=== PATIENT | female | born 1965 | race Caucasian/White ===

== ENCOUNTER 2017-05-30 16:45 | Inpatient (IN) | payer OTHER ==
[2017-05-30] MEDS ORDERED: methylPREDNISolone Sod Succ/PF 125 MG/2 ML VIAL ONE (17:06)
[2017-05-30 17:27] LABS: #Basophils 0.1 thou/uL (0.0-0.2); #Lymphocytes 2.3 thou/uL (1.20-3.40); #Monocytes 0.6 thou/uL (0.11-0.59); #Neutrophils 8.3 thou/uL (1.40-6.50); %Basophils 0.8 % (0.0-1.0); %Eosinophils 0.4 % (0.0-10.0); %Lymphocytes 20.5 % (21.0-51.0); %Monocytes 5.2 % (0.0-10.0); Hematocrit 41.3 % (36.0-47.0); Mean Platelet Volume 7.6 fL (7.4-10.4); Red Blood Cell (RBC) Count 4.27 mill/uL (4.20-5.40); White Blood Cell (WBC) Count 11.4 thou/uL (4.8-10.8)
--- NOTE | 2017-05-30 17:39 | RAD ---
TWO VIEWS CHEST: 05/30/17 HISTORY: Productive cough. PA and lateral views of the chest is obtained on 05/30/17. Comparison made to previous exam from 08/04/13. Two views chest demonstrates an area of newly developed patchy density in the right upper lobe. This area was not present on the previous exam from 08/04/13 and from 11/20/15. This may represent a righ t upper lobe scar versus pneumonia versus mass. Correlate with followup radiograph as well as clinic al correlation. There is also interval development of a subtle area of patchy density along the lateral aspect of th e right lower lobe. The left lung is well aerated. IMPRESSION: Right upper lobe and subtle areas of increased density in the right lower lobe laterally. Followup f ilms to resolution recommended. This may represent areas of possible pneumonia. POS: KEYLA
[2017-05-30 17:44] LABS: ALT (SGPT) 19 U/L (8-55); AST (SGOT) 19 U/L (5-34); Alkaline Phosphatase 88 U/L (40-150); Anion Gap 17 mmol/L (10-20); BUN (Urea Nitrogen) 6 mg/dL (9.8-20.1); Bilirubin, Total 0.3 mg/dL (0.2-1.2); Calc. Creatinine Clearance 0 mL/min (70-130); Calcium 9.8 mg/dL (7.8-10.44); Carbon Dioxide 24 mmol/L (22-29); Chloride 104 mmol/L (98-107); Estimated GFR-MDRD 73; Globulin 4.2 g/dL (2.4-3.5); Protein, Total 8.4 g/dL (6.0-8.3)
[2017-05-30 17:45] LABS: Troponin I Less than 0.010 ng/mL (< 0.028)
[2017-05-30] MEDS ORDERED: cefTRIAXone\\ROCEPHIN 1 GM VIAL ONE (17:50)
[2017-05-30] MEDS ORDERED: Sodium Chloride 0.9% 100 ML ONE (17:50)
[2017-05-30] MEDS ORDERED: Azithromycin 500 MG VIAL ONE (18:25)
[2017-05-30] MEDS ORDERED: Acetaminophen 325 MG TAB ONE (20:22)
[2017-05-30 21:15] LABS: Bilirubin Negative (Negative); Blood, Urine Small (Negative); Glucose, Urine (Dipstick) Negative (Negative); Ketone, Urine Negative (Negative); Nitrite Negative (Negative); Protein, Urine (Dipstick) Negative (Neg-Trace); Urobilinogen 0.2 mg/dL (0.2-1.0)
[2017-05-30 21:30] LABS: RBC/HPF 0-3 HPF (0-3); Squamous Epithelial 0-3 HPF (0-3); WBC/HPF 0-3 HPF (0-3)
[2017-05-30] MEDS ORDERED: Ondansetron ODT 4 MG TAB SL PRN (23:22)
[2017-05-30] MEDS ORDERED: Ondansetron HCl/PF 4 MG/2 ML Vial IVP PRN (23:22)
[2017-05-30] MEDS ORDERED: Dextrose 5 %-0.45 % NaCl 1,000 ML IV SCH (23:30)
[2017-05-30 23:50] VITALS: BMI 22.1
[2017-05-31] MEDS ORDERED: Docusate 100 MG CAP PO PRN (00:33)
[2017-05-31] MEDS ORDERED: Ondansetron HCl/PF 4 MG/2 ML Vial IVP PRN (00:33)
[2017-05-31] MEDS ORDERED: Acetaminophen 325 MG TAB PO PRN (00:33)
[2017-05-31] MEDS ORDERED: Mag-Al 1200 mg/1200 mg/30 ML UDCUP PO PRN (00:33)
[2017-05-31] MEDS: Benzonatate 100 MG CAP PO PRN ×2 (01:40→05:33)
[2017-05-31] MEDS: Sodium Chloride 0.9% 1,000 ML IV SCH ×2 (01:41→11:48)
[2017-05-31] MEDS ORDERED: Nicotine 14 MG PATCH TD SCH (02:00)
[2017-05-31] MEDS ORDERED: Potassium Chloride 20 MEQ TAB PO SCH (03:30)
[2017-05-31 04:11] LABS: #Lymphocytes 0.8 thou/uL (1.20-3.40); #Monocytes 0.1 thou/uL (0.11-0.59); #Neutrophils 8.5 thou/uL (1.40-6.50); %Basophils 0.1 % (0.0-1.0); %Eosinophils 0.4 % (0.0-10.0); %Lymphocytes 8.1 % (21.0-51.0); %Monocytes 0.7 % (0.0-10.0); Hematocrit 40.1 % (36.0-47.0); Mean Platelet Volume 7.5 fL (7.4-10.4); White Blood Cell (WBC) Count 9.4 thou/uL (4.8-10.8)
[2017-05-31 04:17] LABS: Anion Gap 16 mmol/L (10-20); BUN (Urea Nitrogen) 5 mg/dL (9.8-20.1); Calc. Creatinine Clearance 108 mL/min (70-130); Carbon Dioxide 20 mmol/L (22-29); Chloride 108 mmol/L (98-107); Estimated GFR-MDRD Greater than 90
[2017-05-31 04:23] LABS: LegU Control Bar Appear? YES (CONTROL BAR); LegionellaU Control Bkground? CLEAR/WHITE (CLR/WHITE); Strp pneuU Control Background? CLEAR/WHITE (CLR/WHITE); Strp pneumo Control Bar Appear YES (CONTROL BAR)
[2017-05-31] MEDS ORDERED: cefTRIAXone\\ROCEPHIN 1 GM in Sodium Chloride 0.9% 100 ML IVPB SCH (06:00)
[2017-05-31] MEDS ORDERED: Ibuprofen 600 MG TAB PO PRN (06:35)
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
--- NOTE | 2017-05-31 07:10 | HP-2 ---
DATE OF ADMISSION: 05/30/2017 DATE OF SERVICE: 05/30/2017 LOCATION: [place], [place]. CO-SIGNER: Dr. Kathi Mack. CODE STATUS: FULL CODE. PRIMARY CARE PHYSICIAN: [place] [facility]. ATTENDING PHYSICIAN: Dr. Dr. Kathi Mack. RESIDENT PHYSICIAN: Dr. Marcelino Bruce. HISTORIAN: Patient provided the history. CHIEF COMPLAINT: Productive cough, chills, and shortness of breath. HISTORY OF PRESENT ILLNESS: The patient is a 52-year-old female with past medical history of COPD, persistent tobacco abuse who presented with a 2 week history of increased shortness of breath, produ ctive cough, and chills which have been worsening since onset. The patient also reports of blood ti nged sputum and has a history of a lung mass, which was previously biopsied and found to be noncance angely. However, she was instructed to follow up within 6 months of the biopsy, but is yet to return for followup visit in over a year. The patient is complaining of bilateral lower rib/chest pain and it is worse with deep inspiration. She denies fever, nausea, vomiting, diarrhea, constipation, esperanza phoresis. ER: In the ER, the patient was given 1 liter normal saline, Tylenol for pain, IV Rocephin and IV az ithromycin as well as DuoNeb x2 and methylprednisolone. PAST MEDICAL HISTORY: 1. COPD. 2. Chronic hepatitis C. 3. Chronic pain. 4. Bipolar depression. PAST SURGICAL HISTORY: 1. Bilateral tubal ligation. 2. Cholecystectomy. ALLERGIES: IBUPROFEN. MEDICATIONS: 1. Cetirizine 10 mg daily. 2. Seroquel 100 mg nightly. 3. Omeprazole 20 mg daily. 4. Aspirin 81 mg daily. 5. Lyrica 75 mg b.i.d. 6. Montelukast 10 mg daily. 7. Spiriva 2.5 mcg per inhalation b.i.d. FAMILY HISTORY: Positive for diabetes, kidney disease, liver disease. SOCIAL HISTORY: The patient is a current 1 pack per day smoker with a well over [id number] histor y. She denies smoking and denies drug use. REVIEW OF SYSTEMS: General: Patient complains of chills. Denies fever or night sweats. ENT: The patient complains of nasal congestion. Denies rhinorrhea, and sore throat. Respiratory: The patient complains of cough, congestion, shortness of breath. Cardiovascular: The patient patria es chest pain, palpitations or edema. Gastrointestinal: Denies nausea, vomiting, diarrhea, constip ation, abdominal pain. Genitourinary: The patient complains of incontinence. Reports this is a ronic issue. She denies dysuria, polyuria. Musculoskeletal: The patient denies pain or tenderness . Neurologic: The patient denies weakness, numbness, syncopal episodes. PHYSICAL EXAMINATION: VITAL SIGNS: The patient's blood pressure 151/99, pulse 91, respirations 22 breaths per minute, T-m ax 98.9, pulse oximetry 95% on room air. Patient's current weight 64 kilograms. GENERAL: The patient is alert and oriented, in no acute distress, thin and appropriately interactiv e. EYES: Extraocular muscles intact. Conjunctivae within normal limits. NECK: Supple, without lymphadenopathy. No thyromegaly. CARDIOVASCULAR: Heart regular rate and rhythm. No murmurs, rubs or gallops. Radial pulses 2+. Pe mili pulses 2+. RESPIRATORY: Lungs clear to auscultation bilaterally, normal effort, no retractions, no paradoxical breathing. SKIN: Warm, dry. No cyanosis. ABDOMEN: Soft, nontender. Normoactive bowel sounds in all 4 quadrants. No masses, distention or o rganomegaly. EXTREMITIES: No clubbing, no cyanosis, no edema. MUSCULOSKELETAL: Structure within normal limits. Tone within normal limits. NEUROLOGIC: No focal deficits. GCS 15. PSYCHIATRIC: The patient appropriate. LABORATORY DATA: White blood cell 11.4, hemoglobin 13.9, hematocrit 41.3, sodium 142, potassium 3.3 , chloride 104, bicarbonate 24, BUN 6, creatinine 0.82, glucose 87, calcium 9.8, total protein 8.4, albumin 4.2, AST 19, ALT 19, alkaline phosphatase 88, D-dimer 0.59, CRP 1.57, CK-MB is 0.9, troponin less than 0.010. UA was positive for small amount of blood in the urine, but otherwise negative. IMAGING: Chest x-ray showed a right upper lobe and subtle areas of increased density in the right l ower lobe laterally concerning for pneumonia. ASSESSMENT AND PLAN: 1. Chronic obstructive pulmonary disease exacerbation secondary to community-acquired pneumonia. P monika will be admitted to the medical floor and continued on IV Rocephin and azithromycin at 2 gram s daily and 500 mg daily, respectively. The patient will be started on DuoNeb q.4 hours scheduled a nd q.2 hours p.r.n. The patient encouraged to use incentive spirometer and flutter valve. The patie nt will be started on prednisone 40 mg daily. We will get a CT angio with elevated D-dimer, history of previous mass and hemoptysis, those results are pending. We will check urinary legionella and s trep pneumo antigen as well as Flu A and B antibody screen. The patient will be placed on IV fluids normal saline at 100 mL per hour. 2. Leukocytosis is likely secondary to community-acquired pneumonia versus viral pneumonia. The pa tient will be continued on IV Rocephin and azithromycin. Flu A and B antibody studies pending. Uri ne legionella and strep pneumo antigens pending. 3. Hypokalemia. The patient will be given 20 mEq of p.o. potassium. We will recheck a BMP in the morning. 4. Prophylaxis. The patient will be given sequential compression devices for deep venous thrombosi s prophylaxis and omeprazole for gastrointestinal prophylaxis. DISPOSITION AND LENGTH OF STAY: Patient is stable. Expected length of stay greater than or equal t o 2 days. Symptomatic medication will be provided. History and physical exam as well as management was discussed with Dr. Kathi Mack who agrees with the above assessment and plan was otherwise noted in the history and physical.
--- NOTE | 2017-05-31 07:39 | HP ---
DATE OF ADMISSION: 05/30/2017 ATTENDING: Dr. Kathi Mack. RESIDENT: DO Dr. Teo Natarajan's history and physical reviewed and case discussed. Pertinent portions of the history an d physical reviewed by myself. I agree with the assessment and plan with the following addendum: Ms. Miranda is a 52-year-old female with past medical history of COPD, who presents with a COPD exacerbation. She is currently not hypoxic. She was then given a dose of IV steroids and an tibiotics in the ER. Her chest x-ray shows a spiculated lesion concerning for possible mass. In ad dition to that her D-dimer is elevated. We will consider CTA in the morning to evaluate further. B ased on those results, may consider consulting Pulmonology.
[2017-05-31] MEDS ORDERED: predniSONE 20 MG TAB PO SCH (08:00)
[2017-05-31] MEDS ORDERED: Montelukast Sodium 10 mg Tablet PO SCH (09:00)
[2017-05-31] MEDS ORDERED: FLU VACC QS2017-18 36 mo. & older 0.5 ML SYRINGE IM ONE (09:00)
[2017-05-31] MEDS ORDERED: Iopamidol 370 76% 100 ML VIAL ONE (14:35)
--- NOTE | 2017-05-31 15:23 | CT ---
CT PULMONARY ANGIOGRAM WITH IV CONTRAST ND 3D POSTPROCESSING: Date: 05/31/17 HISTORY: Hemoptysis. FINDINGS: There is good contrast opacification of the pulmonary arterial vasculature without filling defects t o suggest pulmonary embolism. The thoracic aorta is well opacified without aneurysm or dissection. N o pleural or pericardial effusions are seen. The 9.0 mm lymph node in the anterior mediastinum is st able since 11/30/12. There is a new 3.0 cm mass in the right upper lobe with associated spiculation. Increased density within the mass is likely vascularity, though the possibility of internal calcifi cation cannot be completely excluded in the absence of noncontrasted images. There are emphysematous changes. No osteolytic or osteoblastic lesions are seen. IMPRESSION: 1. No CT evidence of pulmonary embolism. 2. 3.0 cm right upper lobe lung mass. Further evaluation with PET scan is recommended. CODE T. POS: KEYLA
[2017-05-31 16:24] VITALS: BP 144/80; TEMP 98.1
[2017-05-31] MEDS ORDERED: Azithromycin 500 MG in Sodium Chloride 0.9% 250 ML 250 ML IVPB SCH (20:00)
--- NOTE | 2017-05-31 20:29 | DIS-2 ---
DATE OF ADMISSION: 05/30/2017 DATE OF DISCHARGE: 05/31/2017 RESIDENT: Wilson Almazan DO ADMITTING ATTENDING: Kathi Mack D.O. DISCHARGE ATTENDING: Virgie Gorman M.D. CONSULTATIONS: None. PROCEDURES: CTA. PRIMARY DIAGNOSIS: Community-acquired pneumonia. SECONDARY DIAGNOSES: Bipolar disorder, COPD, chronic hepatitis C. DISCHARGE MEDICATIONS: Omeprazole 20 mg p.o. daily, montelukast 10 mg p.o. daily, Seroquel 100 mg p .o. at bedtime, azithromycin 250 mg p.o. x4, Omnicef 300 mg b.i.d. x5 days, Tessalon Perles 100 mg p .o. q.4 hours p.r.n. cough. DISCONTINUED MEDICATIONS: None. HISTORY OF PRESENT ILLNESS: The patient was transferred to our ER from [facility] wit h concern for her CAP versus a PE. The patient was admitted for CAP and treated with Rocephin and Z ithromax. The patient was worked up for a DVT due to an elevated D-dimer, a CTA was negative; [facility] [place] [facility], it did show previously diagnosed mass in the right lower lung base. It was recommended at that time on the CT read that the patient had follow up. Patient had an original biopsy apparently a yea r ago and was supposed to have a followup in 6 months. This has not been done. The patient is awar e of the fact that she needs to follow up outpatient and have this reevaluated. During hospitalizat ion, she had no additional oxygen requirements. Her oxygen saturation is approximately her baseline at 95%. She had no fever and her white count elevated white count resolved by the morning with ant ibiotics. The patient was discharged on p.o. antibiotics and was instructed to complete the course. Throughout the hospitalization, the patient complained of a headache and foot pain. She states that the only thing that controls her headache and foot pain is Mallory 10 and complained that her PCP wou ld not give her Mallory or would anyone in the hospital and states that she typically has to get it \\\\ "on the street\\\\". The patient was discharged with Mallory. DISPOSITION: Stable. DISCHARGE INSTRUCTIONS: 1. Location: Home. 2. Diet: Regular. 3. Activity: ad evelyn. 4. Followup: Within 1 week with her PCP.
[2017-05-31] MEDS ORDERED: Cefdinir 300 MG CAP PO SCH (21:00)
== END 2017-05-31 16:52 | disposition home or self-care (01) | DRG 194 ==
LOC: SCSER 16:45 → ONC 19:25
PROVIDERS: ADMIT Family Medicine; ATTEND Family Medicine
DX: J18.9 Pneumonia, unspecified organism (principal); J44.0 Chronic obstructive pulmonary disease with (acute) lower respiratory infection; J44.1 Chronic obstructive pulmonary disease with (acute) exacerbation; F17.210 Nicotine dependence, cigarettes, uncomplicated; R91.8 Other nonspecific abnormal finding of lung field; F31.9 Bipolar disorder, unspecified; B18.2 Chronic viral hepatitis C; E87.6 Hypokalemia; G89.29 Other chronic pain; Z88.8 Allergy status to other drugs, medicaments and biological substances
CPT/HCPCS: 36415; 71020; 71275; 80048; 80053; 81003; 81015; 82553; 84484; 85025; 85379; 86140; 87040; 87086; 87899; 93005; 94640; 94760; 96361; 96365; 96367; 96375; J0456; J0696; J2930; J7050; J7506; J7620

== ENCOUNTER 2019-05-13 13:37 | Emergency (ER) | payer OTHER | END 2019-05-13 14:54 | disposition home or self-care (01) | LOC: SCSER 13:37 | DX: S40.861A Insect bite (nonvenomous) of right upper arm, initial encounter (principal); K21.9 Gastro-esophageal reflux disease without esophagitis; Z85.118 Personal history of other malignant neoplasm of bronchus and lung; J44.9 Chronic obstructive pulmonary disease, unspecified; F31.9 Bipolar disorder, unspecified; F17.210 Nicotine dependence, cigarettes, uncomplicated; Z79.899 Other long term (current) drug therapy; W57.XXXA Bitten or stung by nonvenomous insect and other nonvenomous arthropods, initial encounter | CPT/HCPCS: 99281 ==

== ENCOUNTER 2019-06-23 09:51 | Outpatient (CLI) | payer OTHER ==
--- NOTE | 2019-06-23 11:34 | MMO ---
Bilateral MAMMO Bilat Screen DDI. CLINICAL HISTORY: Patient is 54 years old and is seen for screening. VIEWS: The views performed were: . FILMS COMPARED: The present examination has been compared to prior imaging studies performed at [facility] on 05/17/2014, 06/01/2015, 06/03/2015 and 12/05/2015. This study has been interpreted with the assistance of computer-aided detection. MAMMOGRAM FINDINGS: There are scattered fibroglandular densities. There are no suspicious masses, suspicious calcifications, or new areas of architectural distortion. IMPRESSION: THERE IS NO MAMMOGRAPHIC EVIDENCE OF MALIGNANCY. A ROUTINE FOLLOW-UP MAMMOGRAM IN 1 YEAR IS RECOMMENDED. ACR BI-RADS Category 1 - Negative MAMMOGRAPHY NOTE: 1. A negative mammogram report should not delay a biopsy if a dominant of clinically suspicious mass is present. 2. Approximately 10% to 15% of breast cancers are not detected by mammography. 3. Adenosis and dense breasts may obscure an underlying neoplasm. Reported by: GIL VELAZQUEZ MD Electonically Signed: [id number]
== END 2019-06-23 09:52 | disposition home or self-care (01) ==
LOC: BICMAMMO 09:51
PROVIDERS: ATTEND Student in an Organized Health Care Education/Training Program
DX: Z12.31 Encounter for screening mammogram for malignant neoplasm of breast (principal)
CPT/HCPCS: 77067

== ENCOUNTER 2020-05-12 13:40 | Outpatient (CLI) | payer OTHER ==
--- NOTE | 2020-05-12 17:21 | ULT ---
EXAM: LEFT LOWER EXTREMITY ARTERIAL VASCULAR DUPLEX WITH COLOR AND SPECTRAL DOPPLER IMAGIN05/12/20 HISTORY: Left foot pain and coldness. Examination of the left lower extremity performed from groin to ankle. There were no significant foca l areas of abnormal increased velocity. There is triphasic flow noted involving the common femoral ar dorothy, superficial femoral artery, and popliteal artery with biphasic flow of the profunda femoral art donna. Monophasic flow with abnormal decreased velocity in the region of the anterior tibial artery. Bi phasic flow of the posterior tibial artery and dorsalis pedis arteries. IMPRESSION: 1. Abnormal monophasic flow with very low velocity of approximately 17 cm/s involving the anteri or tibial artery, evidence for significant obstructive disease. Minimal biphasic flow in the profunda femoral artery, posterior tibial artery and dorsalis pedis arteries, evidence for some mild arterial vascular disease. 2. Consider follow-up abdominal aorta and bilateral lower extremity CT angiogram for further ass essment particularly in regards to the abnormal decreased monophasic flow in the anterior tibial chantel ry. POS: OFF
== END 2020-05-12 13:41 | disposition home or self-care (01) ==
LOC: ULT 13:40
PROVIDERS: ATTEND Emergency Medicine
DX: M79.672 Pain in left foot (principal); I73.9 Peripheral vascular disease, unspecified
CPT/HCPCS: 93923

== ENCOUNTER 2020-05-18 11:29 | Emergency (ER) | payer OTHER ==
--- NOTE | 2020-05-18 12:09 | RAD ---
XR Chest 1 View Portable HISTORY: Shortness of breath COMPARISON: 07/25/2019 FINDINGS: The heart size is normal. The lungs are well expanded without focal areas of consolidation, pneumothorax or pleural effusions. IMPRESSION: No radiographic evidence of acute cardiopulmonary process.
[2020-05-18 12:46] LABS: #Lymphocytes 1.3 thou/uL (1.20-3.40); #Monocytes 0.5 thou/uL (0.11-0.59); #Neutrophils 4.3 thou/uL (1.40-6.50); %Basophils 0.6 % (0.0-1.0); %Eosinophils 0.6 % (0.0-10.0); %Lymphocytes 20.5 % (21.0-51.0); %Monocytes 8.6 % (0.0-10.0); %Neutrophils 69.6 % (42.0-75.0); Hemoglobin 15.8 g/dL (12.0-16.0); Mean Corpuscular HGB CONC 33.5 g/dL (32.0-36.0); Mean Corpuscular Hemoglobin 32.7 pg (27.0-31.0); Mean Corpuscular Volume 97.5 fL (78.0-98.0); Mean Platelet Volume 8.7 fL (7.4-10.4); Platelet Count 203 thou/uL (130-400); RBC Distribution Width 11.4 % (11.5-14.5); Red Blood Cell (RBC) Count 4.84 mill/uL (4.20-5.40); White Blood Cell (WBC) Count 6.1 thou/uL (4.8-10.8)
[2020-05-18] MEDS ORDERED: Acetaminophen 500 MG TAB ONE (13:11)
[2020-05-18 13:13] LABS: ALT (SGPT) 31 U/L (8-55); AST (SGOT) 35 U/L (5-34); Albumin 4.5 g/dL (3.5-5.0); Alkaline Phosphatase 82 U/L (40-110); Anion Gap 11 mmol/L (10-20); BUN (Urea Nitrogen) 8 mg/dL (9.8-20.1); Bilirubin, Total 0.5 mg/dL (0.2-1.2); Calc. Creatinine Clearance 0 mL/min (70-130); Calcium 9.3 mg/dL (7.8-10.44); Carbon Dioxide 29 mmol/L (22-29); Chloride 100 mmol/L (98-107); Estimated GFR-MDRD 79; Globulin 3.6 g/dL (2.4-3.5); Glucose 102 mg/dL (70-105); Protein, Total 8.1 g/dL (6.0-8.3); Sodium 136 mmol/L (136-145)
--- NOTE | 2020-05-18 13:50 | CT ---
CT HEAD WITHOUT CONTRAST: 05/18/20 INDICATION: Headache. COMPARISON: Head CT from 2013. Ventricles have normal size and position. No evidence of intracranial hemorrhage or mass. No infarct or edema. Paranasal sinuses appear clear. There is opacification of inferior left mastoid air cells. This appears stable from prior exam. IMPRESSION: No acute process. POS: AH
[2020-05-18] MEDS ORDERED: Ketorolac Tromethamine 30 MG/ML VIAL ONE (15:28)
[2020-05-19 14:20] LABS: SARS-CoV-2 MS2 Positive; SARS-CoV-2 N Gene Positive; SARS-CoV-2 S Gene Positive; SARS-CoV-2 by NAA DETECTED (NotDetected); SARS-CoV-2 orf1ab Positive
--- NOTE | 2020-05-21 11:03 | EKG ---
Test Reason : CP SOB Blood Pressure : / mmHG Vent. Rate : 081 BPM Atrial Rate : 081 BPM P-R Int : 128 ms QRS Dur : 072 ms QT Int : 366 ms P-R-T Axes : 069 060 070 degrees QTc Int : 425 ms Normal sinus rhythm Possible Left atrial enlargement Borderline ECG Confirmed by LUL KINGSTON DO ([id number]), business editor NATACHA NEGRETE ([id number]) on 05/21/2020 11:03:12 AM Referred By: Confirmed By:LUL KINGSTON DO
== END 2020-05-18 14:36 | disposition home or self-care (01) ==
LOC: ERS 11:29
DX: U07.1 COVID-19 (principal); K21.9 Gastro-esophageal reflux disease without esophagitis; B19.20 Unspecified viral hepatitis C without hepatic coma; J44.9 Chronic obstructive pulmonary disease, unspecified; F31.9 Bipolar disorder, unspecified; F17.210 Nicotine dependence, cigarettes, uncomplicated; I10 Essential (primary) hypertension; Z79.899 Other long term (current) drug therapy
CPT/HCPCS: 36415; 70450; 71045; 80053; 84484; 85025; 87635; 93005; 94760; 96374; J1885; U0003

== ENCOUNTER 2020-07-02 15:58 | Emergency (ER) | payer OTHER ==
[2020-07-02] MEDS ORDERED: Acetaminophen 500 MG TAB ONE (16:28)
[2020-07-02] MEDS ORDERED: Dexamethasone 4 mg/ml Vial ONE (17:22)
[2020-07-02 17:38] LABS: #Basophils 0.1 thou/uL (0.0-0.2); #Lymphocytes 2.7 thou/uL (1.20-3.40); #Monocytes 0.7 thou/uL (0.11-0.59); %Basophils 0.6 % (0.0-1.0); %Eosinophils 0.5 % (0.0-10.0); %Lymphocytes 25.9 % (21.0-51.0); %Monocytes 6.3 % (0.0-10.0); %Neutrophils 66.7 % (42.0-75.0); Hemoglobin 13.5 g/dL (12.0-16.0); Mean Corpuscular HGB CONC 34.5 g/dL (32.0-36.0); Mean Corpuscular Hemoglobin 33.4 pg (27.0-31.0); Mean Platelet Volume 9.2 fL (7.4-10.4); Platelet Count 192 thou/uL (130-400); RBC Distribution Width 11.6 % (11.5-14.5); Red Blood Cell (RBC) Count 4.05 mill/uL (4.20-5.40); White Blood Cell (WBC) Count 10.5 thou/uL (4.8-10.8)
[2020-07-02 17:39] LABS: Bilirubin Negative (Negative); Blood, Urine Negative (Negative); Clarity Clear (Clear); Glucose, Urine (Dipstick) Normal (Negative); Ketone, Urine Negative (Negative); Leukocyte Negative Leu/uL (Negative); Nitrite Negative (Negative); Protein, Urine (Dipstick) Negative (Neg-Trace); Specific Gravity, Urine 1.004 (1.002-1.036); Urobilinogen Normal mg/dL (Less than 2)
[2020-07-02 18:00] LABS: ALT (SGPT) 27 U/L (8-55); AST (SGOT) 34 U/L (5-34); Alkaline Phosphatase 72 U/L (40-110); Anion Gap 16 mmol/L (10-20); BUN (Urea Nitrogen) 7 mg/dL (9.8-20.1); Bilirubin, Total 0.3 mg/dL (0.2-1.2); Calc. Creatinine Clearance 0 mL/min (70-130); Calcium 8.5 mg/dL (7.8-10.44); Carbon Dioxide 22 mmol/L (22-29); Chloride 105 mmol/L (98-107); Estimated GFR-MDRD 85; Globulin 3.3 g/dL (2.4-3.5); Glucose 102 mg/dL (70-105); Potassium 4.2 mmol/L (3.5-5.1); Protein, Total 7.3 g/dL (6.0-8.3); Sodium 139 mmol/L (136-145)
== END 2020-07-02 18:16 | disposition home or self-care (01) ==
LOC: ERS 15:58
DX: M54.5 Low back pain (principal); I10 Essential (primary) hypertension; R73.9 Hyperglycemia, unspecified; K21.9 Gastro-esophageal reflux disease without esophagitis; F31.9 Bipolar disorder, unspecified; F17.210 Nicotine dependence, cigarettes, uncomplicated; Z79.899 Other long term (current) drug therapy
CPT/HCPCS: 36415; 36416; 80053; 81003; 85025; 99283; J1100

== ENCOUNTER 2021-06-12 08:31 | Emergency (ER) | payer OTHER ==
[2021-06-12 10:35] LABS: SARS-CoV-2 NAA Rapid Test Not Detected (NotDetected)
== END 2021-06-12 09:20 | disposition home or self-care (01) ==
LOC: ERS 08:31
DX: R06.02 Shortness of breath (principal); R05.9 Cough, unspecified; I10 Essential (primary) hypertension; K21.9 Gastro-esophageal reflux disease without esophagitis; J44.9 Chronic obstructive pulmonary disease, unspecified; F17.210 Nicotine dependence, cigarettes, uncomplicated; Z20.822 Contact with and (suspected) exposure to COVID-19; Z79.899 Other long term (current) drug therapy
CPT/HCPCS: 99283; U0002

== ENCOUNTER 2021-11-28 11:26 | Outpatient (CLI) | payer OTHER | END 2021-11-28 11:27 | disposition home or self-care (01) | LOC: BICMAMMO 11:26 | PROVIDERS: ATTEND Family Medicine | DX: Z12.31 Encounter for screening mammogram for malignant neoplasm of breast (principal) | CPT/HCPCS: 77063; 77067 ==

== ENCOUNTER 2022-04-25 15:18 | Emergency (ER) | payer OTHER ==
[2022-04-25 16:08] LABS: #Eosinphils 0.1 thou/uL (0.0-0.7); #Lymphocytes 3.1 thou/uL (1.20-3.40); #Monocytes 0.6 thou/uL (0.11-0.59); %Basophils 0.3 % (0.0-1.0); %Eosinophils 0.8 % (0.0-10.0); %Lymphocytes 35.4 % (21.0-51.0); %Monocytes 6.4 % (0.0-10.0); %Neutrophils 57.1 % (42.0-75.0); Hemoglobin 14.7 g/dL (12.0-16.0); Mean Corpuscular HGB CONC 33.7 g/dL (32.0-36.0); Mean Platelet Volume 9.3 fL (7.4-10.4); Platelet Count 196 thou/uL (130-400); RBC Distribution Width 11.9 % (11.5-14.5); Red Blood Cell (RBC) Count 4.45 mill/uL (4.20-5.40); White Blood Cell (WBC) Count 8.7 thou/uL (4.8-10.8)
[2022-04-25 16:20] LABS: ALT (SGPT) 25 U/L (8-55); AST (SGOT) 33 U/L (5-34); Albumin 4.4 g/dL (3.5-5.0); Alkaline Phosphatase 91 U/L (40-110); Anion Gap 15 mmol/L (10-20); BUN (Urea Nitrogen) 16 mg/dL (9.8-20.1); Bilirubin, Total 0.5 mg/dL (0.2-1.2); Calc. Creatinine Clearance 0 mL/min (70-130); Calcium 10.1 mg/dL (7.8-10.44); Carbon Dioxide 24 mmol/L (22-29); Chloride 107 mmol/L (98-107); Estimated GFR 82; Globulin 3.6 g/dL (2.4-3.5); Glucose 109 mg/dL (70-105); Lipase 25 U/L (8-78); Potassium 4.1 mmol/L (3.5-5.1); Sodium 142 mmol/L (136-145)
[2022-04-25] MEDS ORDERED: Acetaminophen 500 MG TAB ONE ×2 (17:24→17:25)
[2022-04-25] MEDS ORDERED: Magnesium 2 GM/50 ML BAG (IN WATER) ONE (17:24)
[2022-04-25] MEDS ORDERED: Ketorolac Tromethamine 30 MG/ML VIAL ONE (17:25)
== END 2022-04-25 19:27 | disposition home or self-care (01) ==
LOC: ERS 15:18
DX: R55 Syncope and collapse (principal); R51.9 Headache, unspecified; I10 Essential (primary) hypertension; J44.9 Chronic obstructive pulmonary disease, unspecified; K21.9 Gastro-esophageal reflux disease without esophagitis; F17.210 Nicotine dependence, cigarettes, uncomplicated; Z20.822 Contact with and (suspected) exposure to COVID-19; Z85.118 Personal history of other malignant neoplasm of bronchus and lung; Z79.899 Other long term (current) drug therapy
CPT/HCPCS: 36415; 70450; 71045; 80053; 83690; 83880; 84484; 85025; 93005; 96365; 96366; 96375; J1885; J3475; U0003; U0005

== ENCOUNTER 2023-03-15 20:39 | Emergency (ER) | payer OTHER ==
[2023-03-15 23:17] LABS: #Eosinphils 0.1 thou/uL (0.0-0.7); #Monocytes 0.5 thou/uL (0.11-0.59); #Neutrophils 4.1 thou/uL (1.40-6.50); %Basophils 0.3 % (0.0-1.0); %Eosinophils 0.7 % (0.0-10.0); %Lymphocytes 33.9 % (21.0-51.0); %Monocytes 6.9 % (0.0-10.0); %Neutrophils 58.1 % (42.0-75.0); Hematocrit 41.5 % (36.0-47.0); Hemoglobin 14.2 g/dL (12.0-16.0); Mean Corpuscular HGB CONC 34.2 g/dL (32.0-36.0); Mean Corpuscular Hemoglobin 31.9 pg (27.0-31.0); Mean Corpuscular Volume 93.3 fl (78.0-98.0); Platelet Count 191 10x3/uL (130-400); RBC Distribution Width 12.5 % (11.5-14.5); Red Blood Cell (RBC) Count 4.45 mill/uL (4.20-5.40); White Blood Cell (WBC) Count 7.1 10x3/uL (4.8-10.8)
[2023-03-15 23:39] LABS: ALT (SGPT) 20 U/L (8-55); AST (SGOT) 27 U/L (5-34); Albumin 3.9 g/dL (3.5-5.0); Alkaline Phosphatase 78 U/L (40-110); Anion Gap 12 mmol/L (10-20); BUN (Urea Nitrogen) 8 mg/dL (9.8-20.1); Bilirubin, Total 0.3 mg/dL (0.2-1.2); Calc. Creatinine Clearance 0 mL/min (70-130); Calcium 9.5 mg/dL (7.8-10.44); Carbon Dioxide 24 mmol/L (22-29); Chloride 106 mmol/L (98-107); Estimated GFR 100; Globulin 3.4 g/dL (2.4-3.5); Glucose 94 mg/dL (70-105); Lipase 17 U/L (8-78); Magnesium 1.8 mg/dL (1.6-2.6); Potassium 4.1 mmol/L (3.5-5.1); Protein, Total 7.3 g/dL (6.0-8.3); Sodium 138 mmol/L (136-145)
[2023-03-15 23:43] LABS: Troponin I Less than 0.010 ng/mL (< 0.028)
[2023-03-16] MEDS ORDERED: Ketorolac Tromethamine 30 MG/ML VIAL ONE (00:05)
== END 2023-03-16 00:44 | disposition home or self-care (01) ==
LOC: ERS 20:39
DX: R07.89 Other chest pain (principal); I10 Essential (primary) hypertension; K21.9 Gastro-esophageal reflux disease without esophagitis; J44.9 Chronic obstructive pulmonary disease, unspecified; Z87.891 Personal history of nicotine dependence; Z79.899 Other long term (current) drug therapy
CPT/HCPCS: 36415; 71045; 80053; 83690; 83735; 84484; 85025; 93005; 96372; J1885

== ENCOUNTER 2023-06-17 13:02 | Outpatient (CLI) | payer OTHER | END 2023-06-17 13:03 | disposition home or self-care (01) | LOC: BICMAMMO 13:02 | PROVIDERS: ATTEND Family Medicine | DX: Z12.31 Encounter for screening mammogram for malignant neoplasm of breast (principal) | CPT/HCPCS: 77067 ==

== ENCOUNTER 2024-07-15 13:37 | Outpatient (CLI) | payer OTHER | END 2024-07-15 13:38 | disposition home or self-care (01) | LOC: BICMAMMO 13:37 | PROVIDERS: ATTEND Family Medicine | DX: Z12.31 Encounter for screening mammogram for malignant neoplasm of breast (principal); N64.89 Other specified disorders of breast | CPT/HCPCS: 77067 ==

== ENCOUNTER 2024-07-27 14:13 | Outpatient (CLI) | payer OTHER | END 2024-07-27 14:14 | disposition home or self-care (01) | LOC: BICMAMMO 14:13 | PROVIDERS: ATTEND Family Medicine | DX: N64.89 Other specified disorders of breast (principal) | CPT/HCPCS: G0279 ==